=== PATIENT | male | born 1990 | race Caucasian/White ===

== ENCOUNTER 2019-05-21 21:27 | Emergency (ER) | payer SELFPAY ==
[2019-05-21] MEDS: ONDANSETRON (ODT) 4 MG TAB ODT (22:04)
[2019-05-21] MEDS: HYDROCODONE/APAP (10/325) TAB PO (22:05)
== END 2019-05-22 00:02 | disposition home or self-care (01) ==
LOC: FTE 05-22 00:02
DX: S06.0X0A Concussion without loss of consciousness, initial encounter (principal); S00.83XA Contusion of other part of head, initial encounter; S00.33XA Contusion of nose, initial encounter; S20.219A Contusion of unspecified front wall of thorax, initial encounter; S16.1XXA Strain of muscle, fascia and tendon at neck level, initial encounter; V43.52XA Car driver injured in collision with other type car in traffic accident, initial encounter
CPT/HCPCS: 70450; 70486; 71046; 72125; 99284-25

== ENCOUNTER 2019-06-19 17:42 | Emergency (ER) | payer SELFPAY ==
[2019-06-19] MEDS: KETOROLAC 30 MG INJ IM (20:51)
== END 2019-06-19 21:23 | disposition home or self-care (01) ==
LOC: FTE 17:42
DX: R51 Headache (principal)
CPT/HCPCS: 96372; 99284-25